=== PATIENT | female | born 1980 | race Caucasian/White ===

== ENCOUNTER 2017-09-22 23:19 | Emergency (ER) | payer OTHER ==
[~2017-09-22] VITALS: Ht 165.1 cm; Wt 47.6 kg
[~2017-09-22 23:19] MED LIST: AUGMENTIN 875875 MG PO; DOXYCYCLINE 10100 MG PO; IBUPROFEN 600600 M1 PO; MOBIC7.5 MG PO; MULTIVITAMINS1 EAC7 PO; NAPROSYN500 MG PO; ROBAXIN 750 MG750 M1 PO; TRAMADOL 50 MG50 MG PO
[2017-09-22 23:42] LABS: ABSOLUTE NEUTROPHILS 6.3 thou/uL (1.4-8.2); BASOPHILS 0.7 % (0.0-2.0); EOSINOPHILS 2.1 % (0.0-3.0); HEMATOCRIT 42.2 % (37.0-47.0); HEMOGLOBIN 14.7 gm/dL (12.0-15.0); LYMPHOCYTES 13.3 % (24.0-44.0); MCHC 34.7 g/dL (28.0-37.0); MCV 92.2 fL (80.0-100.0); MONOCYTES 5.7 % (1.0-8.0); PLATELET COUNT 253 thou/uL (150-400); POLYS 78.2 % (36.0-66.0); RBC 4.58 mil/uL (4.20-5.00)
[2017-09-22 23:46] LABS: CALCIUM 8.4 mg/dL (8.5-10.1); CREATININE 0.8 mg/dL (0.6-1.0); POTASSIUM 3.2 mmol/L (3.5-5.1)
[2017-09-22] MEDS ORDERED: NOHOMEMEDICATIONS (23:56)
[2017-09-23] MEDS ORDERED: IBUPROFEN 800800 MG PO (01:57)
== END 2017-09-23 02:21 | disposition home or self-care (01) ==
LOC: ER 23:19
PROVIDERS: Emergency Medicine
DX: S61.411A Laceration without foreign body of right hand, initial encounter (principal); F17.210 Nicotine dependence, cigarettes, uncomplicated; F10.99 Alcohol use, unspecified with unspecified alcohol-induced disorder; Z88.1 Allergy status to other antibiotic agents; V89.2XXA Person injured in unspecified motor-vehicle accident, traffic, initial encounter; Y93.89 Activity, other specified; Y92.89 Other specified places as the place of occurrence of the external cause; Y99.8 Other external cause status

== ENCOUNTER 2017-10-08 16:50 | Emergency (ER) | payer OTHER ==
[~2017-10-08] VITALS: Ht 170.2 cm; Wt 53.1 kg
[~2017-10-08 16:50] MED LIST changes: +IBUPROFEN 800800 MG PO; +NOHOMEMEDICATIONS
[2017-10-08 16:54] VITALS: BP 131/69
[2017-10-08] MEDS ORDERED: CLEOCIN HCL150 MG PO (17:09)
== END 2017-10-08 17:18 | disposition home or self-care (01) ==
LOC: ER 16:50
DX: L03.113 Cellulitis of right upper limb (principal); S61.411D Laceration without foreign body of right hand, subsequent encounter; F17.210 Nicotine dependence, cigarettes, uncomplicated; Z88.1 Allergy status to other antibiotic agents; Z88.2 Allergy status to sulfonamides; X58.XXXD Exposure to other specified factors, subsequent encounter

== ENCOUNTER 2017-11-06 22:07 | Emergency (ER) | payer OTHER ==
[~2017-11-06] VITALS: Ht 170.2 cm; Wt 53.1 kg
--- NOTE | ~2017-11-06 | EKG ---
[address] [place] [address] ELECTROCARDIOGRAM REPORT Name: DELMY DHALIWAL Room #: DEP [facility]#: [id number] Admission: 11/06/17 Attend Phys: Discharge: 11/06/17 Date of : 84 Report #: [id number] THIS REPORT FOR: //name// [facility] ED Test Date: 2017-11-06 Test Time: 22:52:59 Pat Name: DELMY DHALIWAL Department: Room: Gender: F Cam Specialist: AURELIA : 1980 Requested By: Estuardo Moran Order Number: [id number] MD: Sunny Howell Measurements Intervals [place] Rate: 72 P: 49 AL: 128 QRS: 68 QRSD: 93 T: 39 QT: 414 QTc: 454 Interpretive Statements Sinus rhythm No significant abnormality Compared to ECG 02/19/2007 10:36:10 Sinus arrhythmia no longer present Electronically Signed On 11-07-2017 8:54:33 CDT by Sunny Howell [email or web address] <ELECTRONICALLY SIGNED> By: Sunny Howell MD, [facility] 11/07/17 [id number] Sunny Howell MD, FACC /EPI
[~2017-11-06 22:07] MED LIST changes: +CLEOCIN HCL150 MG PO
[2017-11-06] MEDS ORDERED: MOBIC15 MG PO (23:01)
[2017-11-06 23:11] VITALS: BP 110/76
== END 2017-11-06 23:12 | disposition home or self-care (01) ==
LOC: ER 22:07
DX: R07.89 Other chest pain (principal); F17.210 Nicotine dependence, cigarettes, uncomplicated; Z88.8 Allergy status to other drugs, medicaments and biological substances